=== PATIENT | female | born 1955 | race Two or more races ===

== ENCOUNTER → 2017-03-03 | Outpatient (CLI) | payer MEDICARE, OTHER ==
[2016-01-01 08:15] VITALS: BP 129/79
[~2017-03-03] MED LIST: ASPI-482 PO; ATOR10TA PO; BUPR75TA5 PO; CARV3.12 PO; CLOP75TA PO; CYCL10TA2 PO; HYDR-2762 PO; HYDR12.53 PO; IBUP200T77 PO; LISI40TA PO; PANT40TA3 PO; POTA20TA4 PO; SERT100T PO; ZOLP5TAB PO
--- NOTE | 2017-03-03 19:01 | CARD ---
APPROVED REPORT EXAM: Two-dimensional and M-mode echocardiogram with Doppler and color Doppler. Other Information Quality : Average Rhythm : NSR INDICATION Fatigue Cardiac Disease: CAD 2D DIMENSIONS RVDd3.0 (2.9-3.5cm)Left Atrium(2D)3.7 (1.6-4.0cm) IVSd0.9 (0.7-1.1cm)Aortic Root(2D)3.1 (2.0-3.7cm) LVDd5.3 (3.9-5.9cm)LVOT Diameter2.0 (1.8-2.4cm) PWd0.9 (0.7-1.1cm)LVDs3.4 (2.5-4.0cm) FS (%) 36.3 %SV89.1 ml LVEF(%)60.0 (>50%) Aortic Valve AoV Peak Abel.101.7cm/sAoV VTI21.5cm AO Peak GR.4.1mmHgLVOT Peak Abel.84.1cm/s LVOT VTI 19.94cmAO Mean GR.2mmHg CARIE (VMAX)2.12zz8PDB (VTI)3.03cm2 Mitral Valve MV E Vkxtmvmb18.9cm/sMV DECEL SKOM041cu MV A Yscytqeb46.1cm/sMV WXF45sg E/A Ratio1.3MV A Msrawgay269zv MVA (PHT)3.63cm2 TDI E/Lateral E'6.8E/Medial E'6.6 Pulmonary Valve PV Peak Ieywchmc009.7cm/sPV Peak Grad.4mmHg RVOT VTI19.1cm Tricuspid Valve TR P. Upxgveuo242qg/sRAP QBNZZRLO8nzAp TR Peak Gr.93byCuANJE86dvRe Pulmonary Vein S1 Onifvrvf48.3cm/sD2 Svjfpxxl00.3cm/s LEFT VENTRICLE The left ventricle is normal size. There is normal left ventricular wall thickness. Left ventricle sy stolic function is normal. The Ejection Fraction is 60%. There is normal LV segmental wall motion. Th e left ventricular diastolic function and filling is normal for age. There is no ventricular septal d efect visualized. RIGHT VENTRICLE The right ventricle is normal size. The right ventricular systolic function is normal. ATRIA The left atrium size is normal. The right atrium size is normal. The interatrial septum is intact wit h no evidence for an atrial septal defect or patent foramen ovale as noted on 2-D or Doppler imaging. AORTIC VALVE The aortic valve is mildly calcified. The non- coronary cusp is moderately calcified. The aortic valv e is trileaflet. Doppler and Color Flow revealed no significant aortic regurgitation. There is no sig nificant aortic valvular stenosis. MITRAL VALVE Mitral annular calcification is mild. There is no evidence of mitral valve prolapse. There is no mitr al valve stenosis. Doppler and Color Flow revealed mild mitral regurgitation. TRICUSPID VALVE The tricuspid valve is normal in structure Doppler and Color Flow revealed trace tricuspid regurgitat ion. The PA pressure was estimated at 17 mmHg. There is no tricuspid valve stenosis. PULMONIC VALVE The pulmonic valve is not well visualized. Doppler and Color Flow revealed no pulmonic valvular regur gitation. There is no pulmonic valvular stenosis. GREAT VESSELS The aortic root is normal in size. The ascending aorta is normal in size. Normal pulmonary venous carlos w (Doppler). The IVC is normal in size and collapses >50% with inspiration. PERICARDIAL EFFUSION There is no evidence of significant pericardial effusion. Critical Notification Critical Value: No <Conclusion> Left ventricle systolic function is normal. The Ejection Fraction is 60%. The left atrium size is normal. The right atrium size is normal. The aortic valve is mildly calcified. The non- coronary cusp is moderately calcified. The aortic valve is trileaflet. Doppler and Color Flow revealed mild mitral regurgitation. Mitral annular calcification is mild. Doppler and Color Flow revealed trace tricuspid regurgitation. The PA pressure was estimated at 17 mmHg. The pulmonic valve is not well visualized. There is no evidence of significant pericardial effusion.
== END | disposition home or self-care (01) ==
LOC: ECHO 07:40
PROVIDERS: ATTEND Internal Medicine Cardiovascular Disease
DX: I08.1 Rheumatic disorders of both mitral and tricuspid valves (principal); I25.10 Atherosclerotic heart disease of native coronary artery without angina pectoris; R06.09 Other forms of dyspnea
CPT/HCPCS: 93306

== ENCOUNTER → 2017-05-26 | Outpatient (CLI) | payer MEDICARE, OTHER | END | disposition home or self-care (01) | LOC: KCIC MRI 11:36 | DX: S83.282A Other tear of lateral meniscus, current injury, left knee, initial encounter (principal); M25.462 Effusion, left knee; M94.262 Chondromalacia, left knee; M17.12 Unilateral primary osteoarthritis, left knee; X58.XXXA Exposure to other specified factors, initial encounter; Z98.890 Other specified postprocedural states; Y93.89 Activity, other specified; Y92.89 Other specified places as the place of occurrence of the external cause; Y99.8 Other external cause status | CPT/HCPCS: 73721 ==

== ENCOUNTER → 2017-05-26 | Outpatient (CLI) | payer MEDICARE, OTHER | END | disposition home or self-care (01) | LOC: KCIC MAMMO 11:16 | DX: Z12.31 Encounter for screening mammogram for malignant neoplasm of breast (principal) | CPT/HCPCS: 77063; 77067 ==